=== PATIENT | male | born 1945 | race African-American/Black ===

== ENCOUNTER 2016-09-25 13:17 | Inpatient (IN) | payer MEDICARE, BC ==
[~2016-09-25] VITALS: Ht 182.9 cm; Wt 112.9 kg
[2016-09-25] MEDS ORDERED: OLAN5TAB6 PO (13:33)
[2016-09-25] MEDS ORDERED: SIMV40TA2 PO (13:33)
[2016-09-25] MEDS ORDERED: ASPI-605 PO (13:33)
[2016-09-25] MEDS ORDERED: QUET100T PO (13:33)
[2016-09-25] MEDS ORDERED: DONE10TA4 PO (13:33)
[2016-09-25] MEDS ORDERED: ESCI20TA PO (13:33)
[2016-09-25] MEDS ORDERED: TRAZ-144 PO (13:33)
[2016-09-25] MEDS ORDERED: CEPH-570 PO (13:33)
[2016-09-25] MEDS ORDERED: TAMS-3 PO (13:33)
--- NOTE | 2016-09-25 14:34 | NUR ---
pt transfered to [facility] in stable condition. pt daughter at bedside the whole er stay
--- NOTE | 2016-09-25 14:40 | NUR ---
Pt arrived on gurney accompanied by ER nurse and daughter. Pt is calm and cooperative. Compliant with medications and care. No aggressive or combative behavior. Able to make some needs known. Denies pain or discomfort at this time.
[2016-09-25] MEDS ORDERED: MAG HYDROX/AL HYDROX/SIMETH 30 ML LIQUID UDC PO PRN (15:00)
[2016-09-25] MEDS ORDERED: MAGNESIUM HYDROXIDE 30 ML LIQUID UDC PO PRN (15:00)
[2016-09-25 15:46] VITALS: BP 157/72
[2016-09-25] MEDS ORDERED: LORAZEPAM 2 MG/1 ML VIAL IM ONE (19:45)
[2016-09-25] MEDS ORDERED: diphenhydrAMINE 25 MG/10 ML UDC NG ONE (19:45)
[2016-09-25] MEDS ORDERED: HALOPERIDOL LACTATE 5 MG/1 ML VIAL IM ONE (19:45)
[2016-09-25] MEDS ORDERED: diphenhydrAMINE 50 MG/1 ML VIAL IM ONE (19:45)
[2016-09-25] MEDS ORDERED: LORAZEPAM 2 MG/1 ML VIAL ONE (19:56)
[2016-09-25 20:00] VITALS: BP 165/75
[2016-09-25] MEDS ORDERED: diphenhydrAMINE 50 MG/1 ML VIAL ONE (20:07)
[2016-09-25] MEDS ORDERED: HALOPERIDOL LACTATE 5 MG/1 ML VIAL ONE (20:07)
--- NOTE | 2016-09-25 20:36 | NUR ---
GPS: RECEIVED PATIENT CONFUSED AND DISORIENTED WONDERING AROUND IN OTHER PATIENT'S ROOMS.TALIKING TO HIM SELF. OFFERED ATIVAN 1 MG PO, PATIENT STATED I DON'T NEED IT.GOING TO NURSING STATION AND TV ROOM BANGING ON THE DOORS. UNCOOPERATIVE AND AGITATED STATED I WANT GO SOME WHERE. MD CALLEDS.ATIVAN 2 MG ,BENADRYL 25 MG HALDOL 5 MG IM X1 GIVEN FOR ANXIETY.CONTINUE MONITORING FOR SAFETY.
[2016-09-25 21:00] VITALS: BP 144/72
--- NOTE | 2016-09-25 21:30 | NUR ---
PATIENT REUSED BODY CHECK.
[2016-09-25] MEDS: TEMAZEPAM 7.5 MG CAPSULE PO PRN (22:47)
--- NOTE | 2016-09-25 22:47 | NUR ---
GPS: PATIENT UNABLE TO SLEEP. RESTORIL 7.5 MG PO GIVEN.
--- NOTE | 2016-09-25 23:47 | NUR ---
GPS: PATIENT SLEEPING EYE CLOSE. PRN FOR SLEEP EFFECTIVE.
[2016-09-26] MEDS: LORAZEPAM 1 MG TABLET PO PRN (02:34)
--- NOTE | 2016-09-26 02:35 | NUR ---
GPS:PATIENT IS VERY AGITATED,BANGING ON TABLE. SCREAMING. ATIVAN 1 MG PO GIVEN.
--- NOTE | 2016-09-26 03:35 | NUR ---
GPS: PATIENT IS CALM NOW. PRN EFFECTIVE FOR ANXIETY.
--- NOTE | 2016-09-26 05:59 | NUR ---
GPS: REMAIN CONFUSED AND DISORIENTED ,UNCOOPERATIVE WITH CARE. SLEPT 3 HRS THROUGH THE NIGHT.
[2016-09-26 07:30] VITALS: BP 129/65
[2016-09-26] MEDS ORDERED: CEPHALEXIN MONOHYDRATE 500 MG CAPSULE PO SCH (09:00)
[2016-09-26] MEDS: TAMSULOSIN HCL 0.4 MG CAP.SR.24H PO SCH ×2 (09:00→15:09)
[2016-09-26] MEDS: ASPIRIN EC 81 MG TABLET.DR PO SCH ×2 (09:00→15:09)
--- NOTE | 2016-09-26 14:05 | NUR ---
Initial discharge plan: SW attempted to speak to the patient regarding potential discharge plan.However, due to the pt's current mental status, SW was unable to obtain information.SW spoke to pt's daughter Blanche [[phone]] regarding potential discharge plan.Daughter reported that if pt's behavioral disturbance is resolved,she would like for him to come home.However, if behaviors persist she would like to find placement for the patient.SW will speak to MD, family, and pt to ensure a safe discharge plan is created.SW will form a safe and proper discharge plan.
--- NOTE | 2016-09-26 14:08 | NUR ---
I have reviewed the psychosocial done by Terrell Peoples. Addendum: 09/26/16 at 1412 by JOEL DEL VALLE Amended: Links added.
[2016-09-26] MEDS: CEPHALEXIN MONOHYDRATE 500 MG CAPSULE PO SCH ×2 (15:08→21:00)
[2016-09-26 15:41] VITALS: BP 112/57
[2016-09-26 20:16] VITALS: BP 113/59
[2016-09-26] MEDS: chlorproMAZINE 25 MG TABLET PO SCH (20:47)
[2016-09-26] MEDS: DONEPEZIL 10 MG TABLET PO SCH (20:58)
[2016-09-26] MEDS: SIMVASTATIN 40 MG TABLET PO SCH (20:58)
[2016-09-26] MEDS: MEMANTINE HCL 5 MG TABLET PO SCH (20:59)
--- NOTE | 2016-09-26 22:00 | NUR ---
received to care, lying in bed, appearing confused, but pleasant upon approach. 1;1 sitter remains at side at all times, for safety.as of 2199, he remains awake, and restless. will continue to monitor closely.
[2016-09-26] MEDS: ACETAMINOPHEN 325 MG TABLET PO PRN (23:06)
[2016-09-26] MEDS: TEMAZEPAM 7.5 MG CAPSULE PO PRN (23:06)
--- NOTE | 2016-09-26 23:06 | NUR ---
PRN restoril was given, for insomnia.
--- NOTE | 2016-09-27 00:06 | NUR ---
appears tp be asleep. no dsitress noted.
--- NOTE | 2016-09-27 05:57 | NUR ---
slept 7 hours, total. remains asleep. no distress noted. sitter remains at bedside, for safety.
[2016-09-27] MEDS: CEPHALEXIN MONOHYDRATE 500 MG CAPSULE PO SCH ×3 (06:00→20:56)
[2016-09-27 07:30] VITALS: BP 124/53
[2016-09-27] MEDS: ASPIRIN EC 81 MG TABLET.DR PO SCH (08:36)
[2016-09-27] MEDS: chlorproMAZINE 25 MG TABLET PO SCH ×3 (08:36→20:45)
[2016-09-27] MEDS: MEMANTINE HCL 5 MG TABLET PO SCH ×2 (08:36→20:56)
[2016-09-27] MEDS: TAMSULOSIN HCL 0.4 MG CAP.SR.24H PO SCH (08:36)
[2016-09-27 15:22] VITALS: BP 125/58
[2016-09-27 20:38] VITALS: BP 138/68
[2016-09-27] MEDS: DONEPEZIL 10 MG TABLET PO SCH (20:56)
[2016-09-27] MEDS: SIMVASTATIN 40 MG TABLET PO SCH (20:57)
[2016-09-27] MEDS: TEMAZEPAM 7.5 MG CAPSULE PO PRN (23:25)
--- NOTE | 2016-09-27 23:25 | NUR ---
PRN restoril given for insomnia, and restlessness
--- NOTE | 2016-09-28 01:02 | NUR ---
remains restless. pacing intermittently. difficult to redirect. PRN ativan given at this time. 1;1 sitter remains at side.
[2016-09-28] MEDS: LORAZEPAM 1 MG TABLET PO PRN ×2 (01:03→09:19)
--- NOTE | 2016-09-28 06:00 | NUR ---
did not sleep, last night. has been restless, pacing, at times. sitter remains at side. no distress noted.
[2016-09-28] MEDS: CEPHALEXIN MONOHYDRATE 500 MG CAPSULE PO SCH ×4 (06:12→23:00)
[2016-09-28 07:07] LABS: BASOPHILS # (AUTO) 0.2 K/uL (0.0-8.0); BASOPHILS % (AUTO) 3.5 % (0.0-2.0); EOSINOPHILS # (AUTO) 0.2 K/uL (0.0-0.7); EOSINOPHILS % (AUTO) 3.9 % (0.0-7.0); HEMATOCRIT 36.7 % (36.7-47.1); HEMOGLOBIN 12.5 g/dL (12.5-16.3); LYMPHOCYTES # (AUTO) 1.2 K/uL (20.0-40.0); LYMPHOCYTES % (AUTO) 19.1 % (20.5-51.5); MEAN CORPUSCULAR HEMOGLOBIN 31.2 uug (23.8-33.4); MEAN CORPUSCULAR HGB CONC 34 g/dL (32.5-36.3); MEAN CORPUSCULAR VOLUME 91.8 fL (73.0-96.2); MONOCYTES # (AUTO) 0.7 K/uL (2.0-10.0); MONOCYTES % (AUTO) 10.2 % (0.0-11.0); NEUTROPHILS # (AUTO) 4.1 K/uL (1.8-8.9); NEUTROPHILS % (AUTO) 63.3 % (38.5-71.5); PLATELET COUNT (AUTO) 241 K/uL (152-348); RED CELL DISTRIBUTION WIDTH 12.7 % (12.1-16.2); WHITE BLOOD COUNT (AUTO) 6.4 K/uL (3.6-10.2)
[2016-09-28 07:30] VITALS: BP 121/64
[2016-09-28 07:40] LABS: THYROID STIMULATING HORMONE 2.423 mIU/mL (0.358-3.740)
[2016-09-28 07:50] LABS: ALBUMIN 3.6 g/dL (3.4-5.0); BILIRUBIN,TOTAL 0.7 mg/dL (0.2-1.0); CREATININE 0.9 mg/dL (0.6-1.3); MAGNESIUM 1.8 mg/dL (1.8-2.4); PHOSPHOROUS 4.1 mg/dL (2.5-4.9); TOTAL PROTEIN, SERUM 7.9 g/dL (6.4-8.2)
[2016-09-28] MEDS: MEMANTINE HCL 5 MG TABLET PO SCH ×2 (09:19→21:00)
[2016-09-28] MEDS: chlorproMAZINE 25 MG TABLET PO SCH ×4 (09:19→23:00)
[2016-09-28] MEDS: ASPIRIN EC 81 MG TABLET.DR PO SCH (09:19)
[2016-09-28] MEDS: TAMSULOSIN HCL 0.4 MG CAP.SR.24H PO SCH (09:20)
[2016-09-28] MEDS ORDERED: POTASSIUM CHLORIDE 20 MEQ TAB.PRT.SR PO ONE ×2 (10:00→13:15)
--- NOTE | 2016-09-28 13:14 | NUR ---
WEEKLY MEETING PO INTAKE FLUCTUATES BETWEEN 0-100%, REC TO ADD BOOST ONCE DAILY IF PO INTAKE <50% LAST BM ON 09/25 SKIN INTACT NOTED 8 LB WEIGHT GAIN IN 1 DAY, MOST LIKELY RELATED TO MEASUREMENT ERROR, REC TO REWEIGH PT MEDS: FISH OIL, KCl, ZOCOR, NO DNI NOTED LABS: ELEVATED CHOLESTEROL, LDL, AND HDL LABS, NOTED PT WITH ORDER FOR FISH OIL NUTRITION DIAGNOSIS: SUBOPTIMAL PO INTAKE RELATED TO MENTAL STATUS EVIDENCED BY PO INTAKE 0-100% MONITOR PO INTAKE, LABS, WEIGHT Addendum: 09/28/16 at [address] Amended: Links added.
[2016-09-28] MEDS: OMEGA-3 FATTY ACIDS/FISH OIL CAPSULE PO SCH (13:33)
[2016-09-28 16:00] VITALS: BP 132/59
[2016-09-28 20:35] VITALS: BP 121/57
[2016-09-28] MEDS: SIMVASTATIN 40 MG TABLET PO SCH (21:00)
[2016-09-28] MEDS: DONEPEZIL 10 MG TABLET PO SCH (21:00)
[2016-09-29] MEDS: TEMAZEPAM 7.5 MG CAPSULE PO PRN (00:59)
[2016-09-29] MEDS: LORAZEPAM 1 MG TABLET PO PRN ×2 (02:27→21:17)
[2016-09-29] MEDS: CEPHALEXIN MONOHYDRATE 500 MG CAPSULE PO SCH ×3 (06:43→21:45)
[2016-09-29 07:30] VITALS: BP 119/52
[2016-09-29] MEDS: chlorproMAZINE 25 MG TABLET PO SCH ×4 (08:32→20:44)
[2016-09-29] MEDS: TAMSULOSIN HCL 0.4 MG CAP.SR.24H PO SCH (08:32)
[2016-09-29] MEDS: ASPIRIN EC 81 MG TABLET.DR PO SCH (08:32)
[2016-09-29] MEDS: MEMANTINE HCL 10 MG TABLET PO SCH ×2 (08:32→20:43)
[2016-09-29] MEDS: OMEGA-3 FATTY ACIDS/FISH OIL CAPSULE PO SCH (08:32)
--- NOTE | 2016-09-29 12:59 | NUR ---
Farm Butcher Per daughter's request, the patient has been referred to the following SNFs: [facility] - unable to accept [address] [place] [address] [facility] - accepted [address] [place] [address] [facility] - awaiting response [address] [place] [address] [facility] - unable to accept [address] [place] [address] [facility] - awaiting response [address] [place] [address] [facility] - awaiting response [address] [place] [address] [facility] - awaiting response [address] [place] [address]
--- NOTE | 2016-09-29 13:02 | NUR ---
GPS RN RECEIVED A CALL FROM DAUGHTER, SAURABH . SHE IS REQUESTING TO SPEAK WITH DR. MOYA. WILL ENDORSE TO NEXT SHIFT
--- NOTE | 2016-09-29 14:26 | NUR ---
1300: HELD THORAZINE AND KEFLEX. PT IS A LITTLE LETHARGIC BUT AROUSABLE. VS 121/87, 97%, PULSE 81, RESPIRATION 18. WILL CONTINUE TO MONITOR
[2016-09-29 16:00] VITALS: BP 115/69
[2016-09-29 20:06] VITALS: BP 151/72
[2016-09-29] MEDS: SIMVASTATIN 40 MG TABLET PO SCH (20:44)
--- NOTE | 2016-09-29 23:36 | NUR ---
GPS: Pt. refused all his scheduled bedtime meds.despite numerous attempts by staff. Easily agitated when being persuaded and being re-directed. Staff was able to give Ativan 1 mg earlier with effect. Now resting comfortably in bed. 1:1 sitter at bedside for safety.
[2016-09-30] MEDS: TEMAZEPAM 7.5 MG CAPSULE PO PRN (00:10)
[2016-09-30 05:42] LABS: *BILIRUBIN,URIN NEGATIVE (NEGATIVE); *BLOOD, URINE NEGATIVE (NEGATIVE); *COLOR,URINE YELLOW (YELLOW); *KETONES,URINE NEGATIVE (NEGATIVE); *PROTEIN,URINE NEGATIVE (NEGATIVE); *UROBILINOGEN,URINE 0.2 E.U./dl (NORMAL); LEUKOCYTE ESTERASE ,URINE NEGATIVE (NEGATIVE); NITRITE, URINE NEGATIVE (NEGATIVE); PH,URINE 5.5 (5.0-8.0); UGLUCOSE NEGATIVE (NEGATIVE)
[2016-09-30 06:20] LABS: *CLARITY,URINE HAZY (CLEAR)
[2016-09-30 06:22] LABS: BACTERIA,URINE NONE SEEN /HPF (NONE SEEN); RBC,URINE 0-3 /HPF (0-3); SQUAMOUS EPITHELIAL CELL,UR FEW /HPF (NONE SEEN); WBC,URINE 0-3 /HPF (0-3)
[2016-09-30 06:23] LABS: CALCIUM OXALATE CRYSTALS,UR MODERATE /HPF (NONE SEEN)
[2016-09-30] MEDS: CEPHALEXIN MONOHYDRATE 500 MG CAPSULE PO SCH ×2 (06:25→13:36)
[2016-09-30 07:30] VITALS: BP 130/62
[2016-09-30] MEDS: LORAZEPAM 1 MG TABLET PO PRN ×2 (07:45→12:28)
[2016-09-30] MEDS: ACETAMINOPHEN 325 MG TABLET PO PRN (07:45)
[2016-09-30] MEDS: ASPIRIN EC 81 MG TABLET.DR PO SCH (08:19)
[2016-09-30] MEDS: MEMANTINE HCL 10 MG TABLET PO SCH ×2 (08:20→21:07)
[2016-09-30] MEDS: chlorproMAZINE 25 MG TABLET PO SCH ×3 (08:20→21:07)
[2016-09-30] MEDS: OMEGA-3 FATTY ACIDS/FISH OIL CAPSULE PO SCH (08:20)
[2016-09-30] MEDS: TAMSULOSIN HCL 0.4 MG CAP.SR.24H PO SCH (08:20)
[2016-09-30 16:08] VITALS: BP 123/63
[2016-09-30 21:00] VITALS: BP 130/64
[2016-09-30] MEDS: CLONAZEPAM 0.5 MG TABLET PO SCH (21:07)
[2016-09-30] MEDS: SIMVASTATIN 40 MG TABLET PO SCH (21:07)
[2016-10-01] MEDS: TEMAZEPAM 7.5 MG CAPSULE PO PRN (00:29)
--- NOTE | 2016-10-01 03:07 | NUR ---
GPS: Pt. has been awake still despite taking his sleeping pill ordered. Anxious,mumbling to self at this time. Refused Ativan 1mg PO when offered despite explanation of risks vs.benefits x3. Pt. is confused,disoriented with no insight to present situation. Fall precautions observed. Will continue to monitor.
[2016-10-01 07:30] VITALS: BP 142/63
[2016-10-01] MEDS: CLONAZEPAM 0.5 MG TABLET PO SCH ×2 (08:48→20:29)
[2016-10-01] MEDS: OMEGA-3 FATTY ACIDS/FISH OIL CAPSULE PO SCH (08:48)
[2016-10-01] MEDS: ASPIRIN EC 81 MG TABLET.DR PO SCH (08:48)
[2016-10-01] MEDS: MEMANTINE HCL 10 MG TABLET PO SCH ×2 (08:48→20:30)
[2016-10-01] MEDS: TAMSULOSIN HCL 0.4 MG CAP.SR.24H PO SCH (08:48)
[2016-10-01] MEDS: chlorproMAZINE 25 MG TABLET PO SCH ×3 (08:48→20:29)
[2016-10-01 08:52] LABS: BASOPHILS % (AUTO) 0.6 % (0.0-2.0); EOSINOPHILS # (AUTO) 0.5 K/uL (0.0-0.7); EOSINOPHILS % (AUTO) 9.7 % (0.0-7.0); HEMATOCRIT 36.8 % (36.7-47.1); HEMOGLOBIN 12.7 g/dL (12.5-16.3); LYMPHOCYTES # (AUTO) 1.4 K/uL (20.0-40.0); LYMPHOCYTES % (AUTO) 25.9 % (20.5-51.5); MEAN CORPUSCULAR HEMOGLOBIN 31.7 uug (23.8-33.4); MEAN CORPUSCULAR HGB CONC 35 g/dL (32.5-36.3); MEAN CORPUSCULAR VOLUME 91.7 fL (73.0-96.2); MONOCYTES # (AUTO) 0.6 K/uL (2.0-10.0); MONOCYTES % (AUTO) 11.6 % (0.0-11.0); NEUTROPHILS # (AUTO) 3.1 K/uL (1.8-8.9); NEUTROPHILS % (AUTO) 52.2 % (38.5-71.5); PLATELET COUNT (AUTO) 226 K/uL (152-348); RED BLOOD CELL COUNT(AUTO) 4.01 MIL/uL (4.06-5.63); RED CELL DISTRIBUTION WIDTH 13.1 % (12.1-16.2); WHITE BLOOD COUNT (AUTO) 5.6 K/uL (3.6-10.2)
[2016-10-01 09:18] LABS: ALBUMIN 3.2 g/dL (3.4-5.0); BILIRUBIN,TOTAL 0.4 mg/dL (0.2-1.0); CALCIUM 8.7 mg/dL (8.5-10.1); CREATININE 0.9 mg/dL (0.6-1.3); MAGNESIUM 1.8 mg/dL (1.8-2.4); PHOSPHOROUS 4.7 mg/dL (2.5-4.9); POTASSIUM 3.5 mmol/L (3.5-5.1); TOTAL PROTEIN, SERUM 7.2 g/dL (6.4-8.2)
[2016-10-01 16:00] VITALS: BP 124/67
[2016-10-01] MEDS: SIMVASTATIN 40 MG TABLET PO SCH (20:28)
[2016-10-01 21:10] VITALS: BP 110/76
[2016-10-02] MEDS: TEMAZEPAM 7.5 MG CAPSULE PO PRN (00:26)
--- NOTE | 2016-10-02 00:31 | NUR ---
GPS; patient unable to sleep. restoril 7.5 mg po given.
--- NOTE | 2016-10-02 01:32 | NUR ---
GPS: PATIENT IS SLEEPING EYE CLOSE NOW. PRN EFFECTIVE.
[2016-10-02] MEDS: LORAZEPAM 1 MG TABLET PO PRN (06:44)
--- NOTE | 2016-10-02 06:48 | NUR ---
GPS: PATIENT WONDERING TO OTHERS PATIENTS ROOMS.UNCOOPERATIVE.ATIVAN 1 MG PO GIVEN FOR ANXIETY.SLEPT 4 HRS THROUGH THE NIGHT.REMAIN UNCOOPERATIVE WITH CARE.CONTINUE ON 1:1 SITTER @ BEDSIDE FOR SAFETY.ASSISTED WITH ADL'S. CONTINUE PLAN OF CARE.
[2016-10-02 07:30] VITALS: BP 116/72
[2016-10-02] MEDS: CLONAZEPAM 0.5 MG TABLET PO SCH ×2 (08:28→20:25)
[2016-10-02] MEDS: MEMANTINE HCL 10 MG TABLET PO SCH ×2 (08:28→20:25)
[2016-10-02] MEDS: ASPIRIN EC 81 MG TABLET.DR PO SCH (08:28)
[2016-10-02] MEDS: TAMSULOSIN HCL 0.4 MG CAP.SR.24H PO SCH (08:28)
[2016-10-02] MEDS: OMEGA-3 FATTY ACIDS/FISH OIL CAPSULE PO SCH (08:28)
[2016-10-02] MEDS: chlorproMAZINE 25 MG TABLET PO SCH ×3 (08:28→20:25)
[2016-10-02 16:00] VITALS: BP 128/77
[2016-10-02] MEDS: GENTAMICIN SULFATE OPHT DROP 5 ML BOTTLE EACHEYE SCH ×2 (17:15→21:34)
[2016-10-02] MEDS: SIMVASTATIN 40 MG TABLET PO SCH (20:25)
[2016-10-02] MEDS ORDERED: DOCUSATE SODIUM 100 MG CAPSULE PO SCH (21:00)
[2016-10-02 21:29] VITALS: BP 118/69
[2016-10-03] MEDS: GENTAMICIN SULFATE OPHT DROP 5 ML BOTTLE EACHEYE SCH ×4 (03:30→20:41)
[2016-10-03 07:30] VITALS: BP 117/62
[2016-10-03] MEDS: OMEGA-3 FATTY ACIDS/FISH OIL CAPSULE PO SCH (09:16)
[2016-10-03] MEDS: chlorproMAZINE 25 MG TABLET PO SCH ×3 (09:16→20:27)
[2016-10-03] MEDS: MEMANTINE HCL 10 MG TABLET PO SCH ×2 (09:16→20:27)
[2016-10-03] MEDS: CLONAZEPAM 0.5 MG TABLET PO SCH ×2 (09:16→20:27)
[2016-10-03] MEDS: TAMSULOSIN HCL 0.4 MG CAP.SR.24H PO SCH (09:16)
[2016-10-03] MEDS: ASPIRIN EC 81 MG TABLET.DR PO SCH (09:16)
[2016-10-03] MEDS: DOCUSATE SODIUM 100 MG/10 ML LIQUID UDC PO SCH ×2 (11:21→20:27)
[2016-10-03] MEDS: ACETAMINOPHEN 325 MG TABLET PO PRN (12:52)
[2016-10-03] MEDS ORDERED: MAGNESIUM HYDROXIDE 30 ML LIQUID UDC PO ONE (13:15)
[2016-10-03] MEDS ORDERED: BISACODYL 10 MG SUPP.RECT RC PRN (14:30)
[2016-10-03 15:56] VITALS: BP 110/56
[2016-10-03] MEDS: SIMVASTATIN 40 MG TABLET PO SCH (20:27)
[2016-10-03 21:07] VITALS: BP 126/61
[2016-10-03] MEDS: TEMAZEPAM 7.5 MG CAPSULE PO PRN (22:40)
[2016-10-04] MEDS: GENTAMICIN SULFATE OPHT DROP 5 ML BOTTLE EACHEYE SCH ×4 (03:30→20:51)
[2016-10-04 07:30] VITALS: BP 125/56
[2016-10-04] MEDS: DOCUSATE SODIUM 100 MG/10 ML LIQUID UDC PO SCH ×2 (08:32→20:25)
[2016-10-04] MEDS: CLONAZEPAM 0.5 MG TABLET PO SCH ×2 (08:32→20:25)
[2016-10-04] MEDS: MEMANTINE HCL 10 MG TABLET PO SCH ×2 (08:32→20:25)
[2016-10-04] MEDS: ASPIRIN EC 81 MG TABLET.DR PO SCH (08:32)
[2016-10-04] MEDS: TAMSULOSIN HCL 0.4 MG CAP.SR.24H PO SCH (08:33)
[2016-10-04] MEDS: chlorproMAZINE 25 MG TABLET PO SCH ×3 (08:33→20:26)
[2016-10-04] MEDS: OMEGA-3 FATTY ACIDS/FISH OIL CAPSULE PO SCH (08:33)
--- NOTE | 2016-10-04 14:59 | NUR ---
Solutions Analyst Per daughter's request, the patient has been referred to the following SNFs: [facility] - unable to accept [address] [place] [address] [facility] - accepted [address] [place] [address] [facility] - not able to accept [address] [place] [address] [facility] - unable to accept [address] [place] [address] [facility] - not able to accept [address] [place] [address] [facility] - not able to accept [address] [place] [address] [facility] - awaiting response [address] [place] [address] [facility] - Accepted [address] [place] [address] [facility] - not able to accept [address] [place] [address] SW has been speaking with the patient's daughter Blanche regarding discharge planning since the beginning of patient's admission. The patient's daughter was informed that the patient was accepted to [facility] on Monday09/28/16. SW suggested that Blanche go to the facility to tour and see if she would like for the patient to be transferred there. Blanche toured the facility that day and informed the SW that she was "concerned about noise and odors. Both were very pronounced when I was there.' Don't want to sweat details but looking for placement with likelihood of successful transition. I don't believe that is it." Blanche also toured [facility] and they were initially considering accepting the patient however they informed the SW that they would not be able to accept the patient due to a "workers comp" case. SW informed Hortencia at [facility] that the patient's case had been closed over 5 years ago (according to the daughter) but they stated that there was nothing that they could do since the insurance is still showing up with "workers comp". Per Blanche, she sent [facility] a copy of the "Compromise and Release (C&R)" in patient's claim for work injury, settlement for which included a Medicare set aside for continued treatment, if any, in connection with the injury. Blanche expressed frustration regarding this matter and asked if there was anything else that could be done. SW informed Blanche that this matter is not in the SW's hands and that the SW can not convince the facility to accept the patient as they have made their decision.
[2016-10-04] MEDS: SIMVASTATIN 40 MG TABLET PO SCH (20:25)
[2016-10-04 20:44] VITALS: BP 135/66
[2016-10-05] MEDS: TEMAZEPAM 7.5 MG CAPSULE PO PRN (02:10)
[2016-10-05] MEDS: GENTAMICIN SULFATE OPHT DROP 5 ML BOTTLE EACHEYE SCH ×3 (03:16→15:44)
--- NOTE | 2016-10-05 06:42 | NUR ---
PT WAS UP IN GERICHAIR, SLEPT 5.30 HRS AFTER GIVEN WITH RESTORIL. NO AGITATION OBSERVED, COOPERATIVE WITH MEDS. SAFETY RENDERED. REMAINS ON 1:1 SITTER FOR SAFETY.
[2016-10-05 07:30] VITALS: BP 132/71
[2016-10-05] MEDS: DOCUSATE SODIUM 100 MG/10 ML LIQUID UDC PO SCH (09:39)
[2016-10-05] MEDS: ASPIRIN EC 81 MG TABLET.DR PO SCH (09:40)
[2016-10-05] MEDS: TAMSULOSIN HCL 0.4 MG CAP.SR.24H PO SCH (09:40)
[2016-10-05] MEDS: OMEGA-3 FATTY ACIDS/FISH OIL CAPSULE PO SCH (09:40)
[2016-10-05] MEDS: MEMANTINE HCL 10 MG TABLET PO SCH (09:40)
[2016-10-05] MEDS: CLONAZEPAM 0.5 MG TABLET PO SCH (09:40)
[2016-10-05] MEDS: chlorproMAZINE 25 MG TABLET PO SCH ×2 (09:40→12:44)
--- NOTE | 2016-10-05 12:34 | NUR ---
DC Note: The patient will discharged today to [facility] ([facility]) [[address] [place] [address] ] via ambulance after 3:00 pm. Spoke with Gerri in admissions at the facility who stated that they will be able to accept the patient today. Per Gerri at the facility, they will be assessing the patient upon arrival and will determine if he will require a 1:1 sitter and if so, they will be able to provide that for the patient. Spoke with the patient's daughter Blanche Guaman and she is aware and agreeable with the discharge plan. The patient will follow-up at the facility with cost accounting manager Dr. Ivan Durant and psychiatrist Dr. Sandoval.
--- NOTE | 2016-10-05 14:35 | NUR ---
WEEKLY MEETING: TOLERATING CURRENT DIET(REGULAR) EATING 50-75% OF MEALS ANTHROPOMETRY:HT IS 72",CURRENT WT IS 249LB,BMI 33.8-OBESITY NO SIGNIFICANT WT CHANGES NOTICED NO SIGNIFICANT LAB VALUE NOTICED NUTRITION DIAGNOSIS SUBOPTIMAL PO INTAKE,RELATED TO ALTERED MENTAL STATUS EVIDENCED BY PO INTAKE < 75% OF MEALS INTERVENTION: IF PO INTAKE DECLINE<75% , WILL CONSIDER BOOST ONCE MONITOR;PO INTAKE,WT,NEW LABS Addendum: 10/05/16 at [address] Amended: Links added.
--- NOTE | 2016-10-05 16:59 | NUR ---
1400 Called [facility] about patient will be discharged to their facility via ambulance , picked up time is 1600. Talked to Crain Romero RN report given about the patient Dx, TMS, Lab/xray results and patient current behavior- staff verbalized understanding. 1645 Patient discharged via ambulance stable condition, denies SI/HI. No hallucinations/ no delusion noted.
== END 2016-10-05 16:45 | DRG 885 ==
LOC: ER 13:17 → GPS 14:23
PROVIDERS: ADMIT Psychiatry & Neurology Psychiatry
DX: F29 Unspecified psychosis not due to a substance or known physiological condition (principal); N39.0 Urinary tract infection, site not specified; F03.90 Unspecified dementia, unspecified severity, without behavioral disturbance, psychotic disturbance, mood disturbance, and anxiety; Z87.442 Personal history of urinary calculi; Z73.6 Limitation of activities due to disability; E66.9 Obesity, unspecified; E78.5 Hyperlipidemia, unspecified; E87.6 Hypokalemia; H10.9 Unspecified conjunctivitis; Z79.899 Other long term (current) drug therapy; Z87.440 Personal history of urinary (tract) infections; N40.1 Benign prostatic hyperplasia with lower urinary tract symptoms; R74.0 Nonspecific elevation of levels of transaminase and lactic acid dehydrogenase [LDH]; K59.00 Constipation, unspecified
CPT/HCPCS: 36415; 83735; 84100; 84443; 85025; 87086; 93005; 97001; A4663; J1200; J1630; J2060; Q0161